=== PATIENT | male | born 1970 | race Caucasian/White ===

== ENCOUNTER 2017-03-24 11:21 | Emergency (ER) | payer MEDICAID ==
[~2017-03-24] VITALS: Ht 170.2 cm; Wt 52.2 kg
[2017-03-24 11:30] VITALS: BP 183/107
[2017-03-24] MEDS ORDERED: ALPR1TAB2 PO (12:08)
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
[2017-03-24] MEDS: HYDROcodone/APAP 10/325 1 TAB TABLET PO ONE (12:19)
== END 2017-03-24 12:20 | disposition home or self-care (01) ==
LOC: ER 11:21
DX: F41.1 Generalized anxiety disorder (principal); G89.21 Chronic pain due to trauma
CPT/HCPCS: 99284